=== PATIENT | male | born 1965 | race Caucasian/White ===

== ENCOUNTER 2016-10-05 16:06 | Outpatient (CLI) | payer OTHER ==
--- NOTE | 2016-10-05 20:56 | XRAY Report ---
EXAM: RIGHT HAND RADIOGRAPHY EXAM DATE: 10/05/2016 04:18 PM. CLINICAL HISTORY: Right HAND INJURY 09/19/16 CAUGHT UNDER 150LB OBJECT, pain. COMPARISON: None. TECHNIQUE: 3 views. FINDINGS: Bones: Oblique fracture at the right third metacarpal, nondisplaced. This appears to involve the dist al diaphysis, metacarpal neck and part of the metacarpal head. No definite intra-articular extension is seen. No callus or periosteal reaction seen. Dorsal hand soft tissue swelling. Joints: No subluxation Soft Tissues: Dorsal and mild soft tissue swelling IMPRESSION: 1. Right third metacarpal fracture as above. [facility] Referring Provider Line: [phone] SITE ID: [id number]
== END 2016-10-05 16:07 | disposition home or self-care (01) ==
LOC: DI 16:06
PROVIDERS: ATTEND Physician Assistant
DX: S62.392A Other fracture of third metacarpal bone, right hand, initial encounter for closed fracture (principal)

== ENCOUNTER 2017-11-27 11:47 | Outpatient (CLI) | payer OTHER ==
[2017-11-27 19:25] LABS: ALBUMIN 3.9 g/dL (3.2-5.5); ALBUMIN/GLOBULIN RATIO 1.1 (1.0-2.2); BASOPHILS % (AUTO) 0.6 %; BILIRUBIN,TOTAL 1.2 mg/dL (0.2-1.0); CALCIUM 9.3 mg/dL (8.5-10.3); CREATININE 0.7 mg/dL (0.6-1.2); EOSINOPHILS % (AUTO) 2.6 %; HGB - HEMOGLOBIN 13.2 g/dL (14.0-18.0); LYMPHOCYTES % (AUTO) 14.6 %; MEAN CORPUSCULAR HEMOGLOBIN 30.3 pg (27.0-31.0); MEAN CORPUSCULAR HGB CONC 33.9 g/dL (32.0-36.0); MEAN CORPUSCULAR VOLUME 89.6 fL (80.0-94.0); MEAN PLATELET VOLUME 7.8 fL (7.4-11.4); MONOCYTES % (AUTO) 8.4 %; NEUTROPHILS % (AUTO) 73.8 %; PLT - PLATELET COUNT 316 10^3/uL (130-450); RED BLOOD COUNT 4.37 10^6/uL (4.70-6.10); RED CELL DISTRIBUTION WIDTH 12.8 % (12.0-15.0); TOTAL PROTEIN 7.5 g/dL (6.7-8.2); WHITE BLOOD COUNT 10.8 x10^3/uL (4.8-10.8)
[2017-11-27 19:36] LABS: ABNORMAL LYMPHS % (MANUAL) 0 %
[2017-11-27 20:01] LABS: BAND NEUTROPHILS % (MANUAL) 2 %; DIFFERENTIAL COMMENT MANUAL DIFFERENTIAL; EOSINOPHILS # (MANUAL) 0.1 10^3/uL (0-0.7); LYMPHOCYTES # (MANUAL) 1.9 10^3/uL (1.5-3.5); LYMPHOCYTES % (MANUAL) 18 %; NEUTROPHILS # (MANUAL) 7.8 10^3/uL (1.5-6.6); NEUTROPHILS % (MANUAL) 70 %; PLATELET ESTIMATE, MANUAL NORMAL (130-450,000) (NORMAL); PLATELET MORPHOLOGY NORMAL APPEARANCE (NORMAL); RBC MORPHOLOGY (MULTIPLE) NORMAL APPEARANCE (NORMAL)
== END 2017-11-27 11:48 | disposition home or self-care (01) ==
LOC: LAB.WCP 11:47
PROVIDERS: ATTEND Family Medicine
DX: R10.9 Unspecified abdominal pain (principal)
CPT/HCPCS: 36415; 80053; 82150; 83690; 85025